=== PATIENT | female | born 1960 | race Caucasian/White ===

== ENCOUNTER 2018-09-23 21:23 | Emergency (ER) | payer MEDICAID, OTHER ==
[~2018-09-23] VITALS: Ht 157.5 cm; Wt 69.9 kg
--- NOTE | 2018-09-23 21:29 | NUR ---
Patient to ER bed [address] [facility] for evaluation. Side rails up. Report given to ROSANNE Haque Addendum: 09/23/18 at 2133 by [id number] Room
[2018-09-23 21:33] VITALS: BP_SYST 166
--- NOTE | 2018-09-23 21:35 | NUR ---
ER Dr. Ray at bedside examining patient.
--- NOTE | 2018-09-23 21:39 | NUR ---
Pt C/O Rt ankle pain secondary to mechanical fall. Pt states she was standing on a step stool to reach an item on a shelf and lost her balance. Pt denies KO and states she fell on her back and Rt heel. Pt's heel is a 10/10 on pain scale and radiates to her hip and back. Pt denies any chest pain, shortness of breath, nausea or vomiting at this time. Vital signs are stable, will continue to monitor.
[2018-09-23] MEDS ORDERED: ONDANSETRON 4 MG ODT TAB PO ONE (21:45)
[2018-09-23] MEDS ORDERED: MORPHINE 4 MG/ML INJ. SYRINGE IVP ONE (21:45)
[2018-09-23] MEDS ORDERED: MORPHINE 4 MG/ML INJ. SYRINGE IM ONE (22:15)
--- NOTE | 2018-09-23 22:40 | NUR ---
Posterior short leg splint applied to right leg. Strong, regular pulse noted. Capillary refill <3 seconds. Patient has ability to move non-splinted digits. Has sensation present to affected site. Skin color within normal limits. Applied for pain management control.
[2018-09-23 23:04] VITALS: BP_SYST 166
--- NOTE | 2018-09-23 23:04 | NUR ---
Patient given written and verbal discharge instructions and verbalizes understanding. ER MD Dr. Ray discussed with patient the results and treatment provided. Patient in stable condition. ID arm band removed. Rx of ibuprofen and tramadol given. Patient educated on pain management and to follow up with PMD within 2-3 days. Pain Scale 0/10. Opportunity for questions provided and answered. Medication side effect fact sheet provided.
== END 2018-09-23 23:04 | disposition home or self-care (01) ==
LOC: SED 21:33
DX: S92.001A Unspecified fracture of right calcaneus, initial encounter for closed fracture (principal); S82.64XA Nondisplaced fracture of lateral malleolus of right fibula, initial encounter for closed fracture; J45.909 Unspecified asthma, uncomplicated; I10 Essential (primary) hypertension; Z88.0 Allergy status to penicillin; Z87.891 Personal history of nicotine dependence; W01.0XXA Fall on same level from slipping, tripping and stumbling without subsequent striking against object, initial encounter; Y93.89 Activity, other specified; Y92.89 Other specified places as the place of occurrence of the external cause; Y99.8 Other external cause status
CPT/HCPCS: 29515; 73610; 73650; 96372; 99283; J2270; Q0162

== ENCOUNTER 2018-10-03 18:34 | Emergency (ER) | payer MEDICAID ==
[~2018-10-03] VITALS: Ht 157.5 cm; Wt 69.9 kg
[2018-10-03 19:00] VITALS: BP_SYST 162
--- NOTE | 2018-10-03 19:45 | NUR ---
Pt wheeled to bed hallway 1 for evaluation
--- NOTE | 2018-10-03 19:51 | NUR ---
ER DASHA Gross at bedside examining patient.
--- NOTE | 2018-10-03 20:00 | NUR ---
Pt came to the ED with daughter for acute, pain and redness on the R foot after falling a week ago. Pt says she had a splint but she had to cut it to the shape of her shoe due to pain. Pt followed up with her doctor but did not receive a referral for ortho. Denies fever, chills, n/v/d, leg pain or other complaints noted.
[2018-10-03] MEDS ORDERED: ACETAMINOPHEN/CODEINE 300 MG-30 MG TABLET PO ONE (20:15)
--- NOTE | 2018-10-03 20:32 | NUR ---
pt mediacted w/ tylenol w/ codiene po per md order. Pt tolerated well, will contiue to monitor.
[2018-10-03 21:48] VITALS: BP_SYST 150
--- NOTE | 2018-10-03 21:48 | NUR ---
Patient given written and verbal discharge instructions and verbalizes understanding. ER MD Dr. Jones discussed with patient the results and treatment provided. Patient in stable condition. ID arm band removed. Rx of motrin and tylenol with codeine given. Patient educated on pain management and to follow up with PMD within 2-3 days. Pain Scale 0/10. Opportunity for questions provided and answered. Medication side effect fact sheet provided.
== END 2018-10-03 21:48 | disposition home or self-care (01) ==
LOC: SED 18:34
DX: S82.891A Other fracture of right lower leg, initial encounter for closed fracture (principal); S92.811A Other fracture of right foot, initial encounter for closed fracture; J45.909 Unspecified asthma, uncomplicated; I10 Essential (primary) hypertension; Z88.0 Allergy status to penicillin; W10.9XXA Fall (on) (from) unspecified stairs and steps, initial encounter; Y93.89 Activity, other specified; Y92.89 Other specified places as the place of occurrence of the external cause; Y99.8 Other external cause status
CPT/HCPCS: 36415; 84550-TC; 99284